=== PATIENT | female | born 1950 | race Caucasian/White ===

== ENCOUNTER → 2024-09-02 | Outpatient (CLI) | payer MEDICARE, BC, SELFPAY ==
--- NOTE | 2024-09-02 15:24 | XR_ITS ---
Examination: Bilateral hands, 6 views. Technique: AP, Oblique, Lateral each hand total 6 views Date and time of exam: September 02, 2024 1527 hours INDICATIONS: Bilateral hand pain 6 months. FINDINGS: Significant osteopenia Diffuse moderate to advanced narrowing joints of the wrist and hand bilaterally No erosive arthritis In the arthritic change is most prominent involving the first carpometacarpal joints and distal interphalangeal joints second through fifth digits and interphalangeal joints first digits most consistent with osteoarthritis, no erosions noted Impression: Significant bilateral arthritic change as above
== END | disposition home or self-care (01) ==
PROVIDERS: PCP Nurse Practitioner Family; Referring Provider Chiropractor; Visit Provider Chiropractor
DX: M18.0 Bilateral primary osteoarthritis of first carpometacarpal joints (principal)
CPT/HCPCS: 73130

== ENCOUNTER → 2024-09-22 | Outpatient (CLI) | payer MEDICARE, BC, SELFPAY ==
--- NOTE | 2024-09-22 12:40 | XR_ITS ---
Examination: Bone densitometry Date and time of exam:September 22, 2024 1326 hours INDICATIONS: Menopause age 45 levothyroxine 10 years Technique: Lumbar spine and hip total bone mineralization values of an calculated. Peak reference and age match control results have been displayed. Findings: Lumbar spine total bone mineralization is1.121 gm/cm2. This is 0.7 standard deviations above peak reference. This is 3.0 standard deviations above age-matched controls. Hip total bone mineralization is 0.902 gm/cm2 This is 0.3 standard deviations below peak reference. This is 1.4 standard deviations above age-matched controls Impression: There is normal mineralization based on lumbar spine measurements. There is osteopenia based on hip measurements
== END | disposition home or self-care (01) ==
LOC: CDIM 12:34
PROVIDERS: Referring Provider Nurse Practitioner Family; Visit Provider Nurse Practitioner Family
DX: M85.88 Other specified disorders of bone density and structure, other site (principal)
CPT/HCPCS: 77080